=== PATIENT | male | born 1985 | race American Indian/Alaskan Native ===

== ENCOUNTER 2017-06-23 17:13 | Emergency (ER) | payer SELFPAY | END 2017-06-24 05:59 | disposition left against medical advice (07) | LOC: ED 17:13 | DX: R51 Headache (principal); Z53.21 Procedure and treatment not carried out due to patient leaving prior to being seen by health care provider ==

== ENCOUNTER 2018-02-23 10:24 | Emergency (ER) | payer OTHER ==
[2018-02-23 10:50] VITALS: BP 112/79
== END 2018-02-23 14:16 | disposition left against medical advice (07) ==
LOC: ED 10:24
DX: R42 Dizziness and giddiness (principal); Z53.21 Procedure and treatment not carried out due to patient leaving prior to being seen by health care provider